=== PATIENT | male | born 1955 | race Caucasian/White ===

== ENCOUNTER 2016-08-30 11:13 | Observation (INO) | payer OTHER ==
[2016-08-30] VITALS (7 sets, daily range): BP systolic 118–173; BP diastolic 59–96
[~2016-08-30] VITALS: Ht 188 cm; Wt 105.5 kg
[~2016-08-30 11:13] MED LIST: ASPIR-LOW81 MG PO; CLOPIDOGREL75 MG PO; LOPRESSOR50 MG PO; METFORMIN HCL500 MG PO; NICOTINE PATCH1 EAC2 TD; NITROSTAT0.4 MG SL; PANTOPRAZOLE SO40 MG PO; PRAVASTATIN SOD80 MG PO; ZESTRIL10 MG PO
[2016-08-30 12:33] LABS: HEMATOCRIT 43.2 % (38.0-50.0); MCH 27.5 PG (29.0-34.0); MCHC 33.3 G/DL (30.0-36.0); MCV 82.4 FL (86-99); MEAN PLAT.VOLUME 10.9 uM^3 (9.0-12.4); PLATELET COUNT 269 K/uL (156-360); RBC DIS.WIDTH-CV 13.3 % (11.8-14.6); RBC DIS.WIDTH-SD 39.7 % (39-53); RED BLOOD COUNT 5.24 M/uL (4.00-5.50); WHITE BLOOD COUNT 7.2 K/uL (4.1-10.2)
[2016-08-30 12:41] LABS: CHLORIDE 102 mEq/L (99-109); POTASSIUM 4.3 mEq/L (3.7-5.4); SODIUM 137 mEq/L (136-147)
[2016-08-30 12:43] LABS: GLUCOSE 319 mg/dL (70-99)
[2016-08-30 12:44] LABS: ANION GAP 14 MEQ/L (2-14)
[2016-08-30 12:46] LABS: GFR ESTIMATE (CALCULATED) > 59 mL/min/
[2016-08-30 12:47] LABS: UREA NITROGEN (BUN) 17 mg/dL (9-23)
[2016-08-30 12:56] LABS: TROP-I INTERPRETATION NEGATIVE; TROPONIN-I 0.02 ng/mL (0.0-0.30)
[2016-08-30] MEDS ORDERED: EXTRA STRENGTH500 M1 PO (13:48)
[2016-08-30] MEDS ORDERED: METFORMIN HCL1000 MG PO (13:48)
[2016-08-30] MEDS ORDERED: TOUJEO SOL300 UNIT/1 SC (13:50)
[2016-08-30] MEDS ORDERED: GLUCOTROL XL10 MG PO (13:50)
[2016-08-30] MEDS ORDERED: FISH OIL 1,001000 M2 PO (13:51)
[2016-08-30 16:41] LABS: HEMATOCRIT 45.7 % (38.0-50.0); MCH 28.3 PG (29.0-34.0); MCHC 33.9 G/DL (30.0-36.0); MCV 83.5 FL (86-99); MEAN PLAT.VOLUME 10.6 uM^3 (9.0-12.4); PLATELET COUNT 269 K/uL (156-360); RBC DIS.WIDTH-CV 13.6 % (11.8-14.6); RED BLOOD COUNT 5.47 M/uL (4.00-5.50); WHITE BLOOD COUNT 8.4 K/uL (4.1-10.2)
[2016-08-30 16:48] LABS: PROTHROMBIN TIME 11.1 SEC (10.2-12.9)
[2016-08-30 16:50] LABS: PTT 28.3 SEC (25-37)
[2016-08-30 18:56] LABS: TROP-I INTERPRETATION NEGATIVE; TROPONIN-I 0.06 ng/mL (0.0-0.30)
[2016-08-30 19:55] LABS: METH RESISTANT S AUREUS PCR NEGATIVE (NEGATIVE)
[2016-08-30 20:09] LABS: PROBE CHECK PASS; SPECIMEN PROCESSING CONTROL PASS
[2016-08-30 21:52] LABS: POINT-OF-CARE METER ID UU14174217
[2016-08-31 01:10] LABS: TROP-I INTERPRETATION NEGATIVE; TROPONIN-I 0.07 ng/mL (0.0-0.30)
[2016-08-31 04:30] VITALS: BP 141/76
[2016-08-31 07:39] VITALS: BP 134/77
[2016-08-31 08:47] LABS: POINT-OF-CARE USER ID ENVKC36
[2016-08-31 11:28] VITALS: BP 125/77
[2016-08-31 12:05] LABS: CHLORIDE 104 mEq/L (99-109); POTASSIUM 4.2 mEq/L (3.7-5.4); SODIUM 137 mEq/L (136-147)
[2016-08-31 12:07] LABS: GLUCOSE 291 mg/dL (70-99)
[2016-08-31 12:09] LABS: ANION GAP 11 MEQ/L (2-14)
[2016-08-31 12:11] LABS: GFR ESTIMATE (CALCULATED) > 59 mL/min/
[2016-08-31 12:12] LABS: UREA NITROGEN (BUN) 15 mg/dL (9-23)
[2016-08-31 12:14] LABS: POINT-OF-CARE USER ID ENVKC36
[2016-08-31] MEDS ORDERED: LOPRESSOR25 MG PO (13:13)
== END 2016-08-31 14:00 | disposition home or self-care (01) ==
LOC: EME 11:13 → EDOF 13:20 → 4EAST 13:20 → EDOF 13:20 → 5WEST 15:34 → 4WEST 18:29 → 4EAST 22:32
PROVIDERS: Internal Medicine; Internal Medicine Cardiovascular Disease; Physician Assistant
PROC: B2151ZZ Fluoroscopy of Left Heart using Low Osmolar Contrast (ICD-10-PCS; principal; 2016-08-30)
PROC: 4A033BC Measurement of Arterial Pressure, Coronary, Percutaneous Approach (ICD-10-PCS; principal; 2016-08-30)
PROC: 4A023N7 Measurement of Cardiac Sampling and Pressure, Left Heart, Percutaneous Approach (ICD-10-PCS; principal; 2016-08-30)
PROC: B2111ZZ Fluoroscopy of Multiple Coronary Arteries using Low Osmolar Contrast (ICD-10-PCS; principal; 2016-08-30)
DX: I25.118 Atherosclerotic heart disease of native coronary artery with other forms of angina pectoris (principal); E11.9 Type 2 diabetes mellitus without complications; Z95.5 Presence of coronary angioplasty implant and graft; E78.5 Hyperlipidemia, unspecified; I10 Essential (primary) hypertension; G43.909 Migraine, unspecified, not intractable, without status migrainosus; Z87.891 Personal history of nicotine dependence; Z79.02 Long term (current) use of antithrombotics/antiplatelets; Z79.82 Long term (current) use of aspirin; Z79.4 Long term (current) use of insulin; E78.00 Pure hypercholesterolemia, unspecified; E66.9 Obesity, unspecified
CPT/HCPCS: 71020; 80048; 82948; 84484; 85027; 85347; 85610; 85730; 86900; 86901; 87641; 93005; 99281; 99284; C1769; C1887; G0378; J0153; J1644; J1815; J2250; J3010; J7050